=== PATIENT | male | born 1975 | race Caucasian/White ===

== ENCOUNTER 2019-08-30 10:51 | Day surgery (SDC) | payer OTHER ==
[2019-08-25 11:05] VITALS: BMI 30.2
[2019-08-30 13:13] VITALS: TEMP 97.8
[2019-08-30 14:55] VITALS: BP 141/80; PULSE 55
== END 2019-08-30 13:30 | disposition home or self-care (01) ==
LOC: JASU-ENDO 10:51
PROVIDERS: ATTEND Internal Medicine Gastroenterology
PROC: 0DJD8ZZ Inspection of Lower Intestinal Tract, Via Natural or Artificial Opening Endoscopic (ICD-10-PCS; principal; 2019-08-30 12:00)
DX: R10.9 Unspecified abdominal pain (principal); K64.8 Other hemorrhoids